=== PATIENT | male | born 1950 | race Caucasian/White ===

== ENCOUNTER 2017-11-21 17:19 | Emergency (ER) | payer BC ==
[2017-11-21 17:42] VITALS: BP 147/74
--- NOTE | 2017-11-21 18:22 | UC ---
Skin Complaint HPI - HPI Summary HPI Summary: 67 y/o male presents to the urgent care c/o bee sting to right upper arm while gardening yesterday. He noticed this morning more itching, erythema, and swelling. Put cortisone cream on this morning without relief. Shamika is 0/10 but area is warm to touch and swollen. Pt denies fever, SOB, chest pain, abdominal pain, N/V/D. - History of Current Complaint Chief Complaint: UCSkin Time Seen by Provider: 11/21/17 18:16 Stated Complaint: BEE STING RT ARM - SWELLING Hx Obtained From: Patient Onset/Duration: Gradual Onset, Lasting Days - 1 day, Still Present, Worse Since - today Skin Exposure Onset/Duration: Days Ago - 1 day Timing: Constant Onset Severity: Mild Current Severity: Mild Pain Intensity: 1 Pain Scale Used: 0-10 Numeric Location: Discrete - RT upper arm Character: Swelling, Pruritus, Raised Aggravating Factor(s): Touch Alleviating Factor(s): Antihistamines Associated Signs & Symptoms: Positive: Rash, Drainage. Negative: Fever, Chills , Throat Tightening Related History: Possible Reaction to: Insect - Allergy/Home Medications Allergies/Adverse Reactions: Allergies Allergy/AdvReac Type Severity Reaction Status Date / Time Sulfa (Sulfonamide Allergy Unknown Verified 11/21/17 17:37 Antibiotics) Reaction Details Home Medications: Home Medications Ascorbic Acid TAB* [Vitamin C TAB*] 500 mg PO DAILY 11/21/17 [History Confirmed 11/21/17] Aspirin [Aspirin Childrens 81 MG] 81 mg PO DAILY 11/21/17 [History Confirmed 07/10] Esomeprazole Magnesium [Nexium 24Hr] 20 mg PO DAILY 11/21/17 [History Confirmed 11/21/17] amLODIPine TAB* [Norvasc 5 mg TAB*] 5 mg PO DAILY 11/21/17 [History Confirmed ] Review of Systems Constitutional: Negative Skin: Rash - Rt upper arm redness and swelling s/p bee sting Eyes: Negative ENT: Negative Respiratory: Negative Cardiovascular: Negative Gastrointestinal: Negative Genitourinary: Negative Motor: Negative Neurovascular: Negative Musculoskeletal: Negative Neurological: Negative Psychological: Negative Is Patient Immunocompromised?: No All Other Systems Reviewed And Are Negative: Yes PMH/Surg Hx/FS Hx/Imm Hx Previously Healthy: Yes Cardiovascular History: Hypertension, Pacemaker/ICD GI/ History: Gastroesophageal Reflux - Surgical History Surgical History: Yes Surgery Procedure, Year, and Place: pacer and (3)aortic valve replacement. carpal tunnel - Family History Known Family History: Positive: Cardiac Disease, Hypertension - Social History Occupation: Retired Lives: With Family Alcohol Use: Daily Alcohol Amount: 1-2 drinks Substance Use Type: None Smoking Status (MU): Never Smoked Tobacco Physical Exam - Summary Physical Exam Summary: Vital Signs Reviewed: Yes General: well developed, well nourished male sitting in the examining table w/o any apparent distress. Eyes: Positive: Conjunctiva Clear - PERRLA, EOMI ENT: Positive: Normal ENT inspection, Hearing grossly normal, Pharynx normal, TMs normal Neck: Positive: Supple, Nontender, No Lymphadenopathy Respiratory: Positive: Chest nontender, Lungs clear, Normal breath sounds Cardiovascular: Positive: RRR, No Murmur, Pulses Normal Abdomen Description: Positive: Nontender, No Organomegaly, Soft. Negative: CVA Tenderness (R), CVA Tenderness (L) Bowel Sounds: Positive: Present Musculoskeletal: Positive: Strength Intact, ROM Intact, No Edema Neurological Exam: Normal Psychological Exam: Normal Skin: Positive: rashes - RT ventral side of Rt upper arm w/ erythematous patch w/ indistinct borders, warm to touch, moderated swelling and tender to palpation. about 2.0cm x 3.0 cm in size. FROM or arm and RT elbow. area demarcated w/ a skin marker. Capillary refill brisk. pulses WNL, sensation intact. Triage Information Reviewed: Yes Vital Signs: Initial Vital Signs Temp 98.4 F 11/21/17 17:33 Pulse 58 11/21/17 17:33 Resp 17 11/21/17 17:33 BP 147/74 11/21/17 17:33 Pulse Ox 98 11/21/17 17:33 Course/Dx - Course Course Of Treatment: 67 y/o male presents to the urgent care c/o bee sting to right upper arm gardening yesterday. He noticed this morning more itching, erythema, and swelling. Put cortisone cream on this morning without relief. Shamika is 0/10 but area is warm to touch and swollen. Pt denies fever, SOB, chest pain, abdominal pain, N/V/D.Hx obtained. Pt w/ RT upper arm w/ ceelulitis s/p bee sting on examination.Pt Rx Keflex PO, Benadryl PO, Prednisone PO and topical Bacitracin. Rash demarcated with a skin marker and Advised if rash doubles in size and if she develops fever to go to the ER for further treatment. Pt BP today elevated w/o Hx of HTN. Pt advised to decrease salt in diet and monitor BP at home if it continues to be elevated to f/u with PCP for further management. Pt understood and agreed. - Differential Diagnoses - Skin Complaint Differential Diagnoses: Abscess, Cellulitis, Contact Dermatitis, MRSA, Urticaria , Other - sting bee - Diagnoses Provider Diagnoses: 1- RT arm cellulitis s/p bee sting. 2- Uncontrolled HTN Discharge - Sign-Out/Discharge Documenting (check all that apply): Discharge/Admit/Transfer - D/C home - Discharge Plan Condition: Stable Disposition: HOME Prescriptions: Cephalexin CAP* [Keflex CAP*] 500 mg PO QID #28 cap diPHENhydraMINE PO* [Benadryl PO 25 MG TAB*] 25 mg PO TID PRN #15 tab PRN Reason: pruritus predniSONE TAB* [Deltasone 20 MG TAB*] 20 mg PO DAILY #11 tab Patient Education Materials: Cellulitis (ED), Low-Sodium Diet (ED) Referrals: Kurtis Page MD [Primary Care Provider] - 3 Days Additional Instructions: 1-Please take full course of Antibiotic. Take Prednisone PO taper dose to alleviate symptoms 2- If redness and swelling doubles in size beyond what was demarcated after 48 hrs of taking antibiotic and fever develops please go to the ER immediately. 3-Avoid too much flexion w/ your Rt arm 4- Take Benadryl PO as directed bayron alleviate itchiness 5-Please F/u with your PCP in 3 days if not improvement of symptoms for further evaluation and treatment. 6-Your BP is elevated today. please decrease salt in your diet, monitor BP and if it continues to be elevated please f/u with your PCP for further management - Billing Disposition and Condition Condition: STABLE Disposition: Home
== END 2017-11-21 18:45 | disposition home or self-care (01) ==
LOC: UCCORT 17:19
DX: L03.113 Cellulitis of right upper limb (principal); T63.441A Toxic effect of venom of bees, accidental (unintentional), initial encounter; Y92.9 Unspecified place or not applicable; Z88.8 Allergy status to other drugs, medicaments and biological substances
CPT/HCPCS: 99212; G0463

== ENCOUNTER 2018-09-02 09:18 | Day surgery (SDC) | payer BC ==
[~2018-09-02 09:18] MED LIST: Acetaminophen TAB* 325 MG PO PRN; Buffered Lidocaine 1% SYRIN* 1 ML/SYRINGE INTRADERM ONE
[2018-09-02] MEDS ORDERED: Midazolam* 1 MG/ML 2 ML VIAL (2 MG) ONE ×2 (10:55→11:22)
[2018-09-02 11:59] VITALS: BP 136/66
[2018-09-02] MEDS ORDERED: Proparacaine 0.5% OPHTH.SOL* 15 ML BTL ONE (12:18)
[2018-09-02] MEDS ORDERED: Cyclopentolate 1% OPTH.SOL* 2 ML BTL ONE (12:18)
[2018-09-02] MEDS ORDERED: Lidocaine 1%* 5 ML VIAL ONE (12:18)
[2018-09-02] MEDS ORDERED: Phenylephrine 2.5% OPTH.SOL* 2 ML BTL ONE (12:18)
[2018-09-02] MEDS ORDERED: acetaZOLAMIDE TAB* 250 MG ONE (12:18)
[2018-09-02] MEDS ORDERED: Povidone Iodine 5% OPTH* 30 ML BTL ONE (12:18)
[2018-09-02] MEDS ORDERED: Lidocaine 2% EPI 1:200000 MPF*10-20 ML VIAL ONE (12:18)
[2018-09-02] MEDS ORDERED: Neomycin/Polymy/Dex OPTH.SUSP* MAXITROL 0.1% 5 ML ONE (12:18)
[2018-09-02] MEDS ORDERED: Ketorolac 0.5% OPHTH (NF) 0.5 % 5 ML BTL ONE (12:18)
--- NOTE | 2018-09-02 13:21 | OP ---
OPERATIVE NOTE: DATE OF OPERATION: 09/02/18 DATE OF : 46 SURGEON: Alvino Duvall M.D. PREOPERATIVE DIAGNOSIS: Cataract, right eye. POSTOPERATIVE DIAGNOSIS: Cataract, right eye. OPERATIVE PROCEDURE: Extracapsular cataract extraction with intraocular lens implant right eye. PROCEDURE: The patient was brought to the operating room after being given 1/2% Alcaine with epineph rine drops in the preoperative area. The eye was prepped and draped in the usual sterile fashion. S terile drape and eyelid speculum were placed. Again, topical 1/2% Alcaine with epinephrine was given . A paracentesis incision was made at the 9 o'clock position with the No.75 blade. Clear cornea inc ision 2.2 x 2.2-mm was created at the 12 o'clock position starting at the anterior limbus using the 2 .2-mm keratome. The anterior chamber was irrigated with 0.4 mL of 1% non-preservative intracameral l idocaine and filled with DisCoVisc. A capsulorrhexis was completed using the cystotome and the Utrat a forceps. Hydrodissection was performed with balanced salt solution. The lens nucleus was removed w ith the Phacoemulsification handpiece without incident. Cortex was removed with the irrigation-aspir ation handpiece. The capsular bag was re-inflated using DisCoVisc and an implant was inserted with the shooter, oriented to the 5 degree meridian. Horizontal reference hutchins made with the patie nt in the preoperative area in a seated position. All measurements were confirmed with ORA. The irri gation-aspiration handpiece was used to remove all residual DisCoVisc. The eye was refilled with bal anced salt solution and the wound checked and found to be watertight. Topical Maxitrol drops were gi timothy. [id number]/[facility] #: [id number]
== END 2018-09-02 12:14 | disposition home or self-care (01) ==
LOC: OREAST 09:18
PROVIDERS: ATTEND Specialist
DX: H25.811 Combined forms of age-related cataract, right eye (principal); H43.813 Vitreous degeneration, bilateral; Z95.2 Presence of prosthetic heart valve; Z79.01 Long term (current) use of anticoagulants; I10 Essential (primary) hypertension; Z87.891 Personal history of nicotine dependence; K21.9 Gastro-esophageal reflux disease without esophagitis
CPT/HCPCS: A9270-GY; J2250

== ENCOUNTER 2018-09-09 07:00 | Day surgery (SDC) | payer BC ==
[2018-09-09] MEDS ORDERED: fentaNYL* 50 MCG/ML 2 ML VIAL (100 MCG VIAL) ONE (08:39)
[2018-09-09] MEDS ORDERED: Midazolam* 1 MG/ML 2 ML VIAL (2 MG) ONE ×2 (08:39→09:10)
[2018-09-09] MEDS ORDERED: Ketorolac 0.5% OPHTH (NF) 0.5 % 5 ML BTL ONE (09:28)
[2018-09-09] MEDS ORDERED: Phenylephrine OPHTH SOL 2.5%* 2 ML ONE (09:28)
[2018-09-09] MEDS ORDERED: Proparacaine 0.5% OPHTH.SOL* 15 ML BTL ONE (09:28)
[2018-09-09] MEDS ORDERED: Cyclopentolate 1% OPTH.SOL* 2 ML BTL ONE (09:28)
[2018-09-09] MEDS ORDERED: Lidocaine 2% EPI 1:200000 MPF*10-20 ML VIAL ONE (09:28)
[2018-09-09] MEDS ORDERED: Povidone Iodine 5% OPTH* 30 ML BTL ONE (09:28)
[2018-09-09] MEDS ORDERED: Lidocaine 1%* 5 ML VIAL ONE (09:28)
[2018-09-09] MEDS ORDERED: Neomycin/Polymy/Dex OPTH.SUSP* MAXITROL 0.1% 5 ML ONE (09:28)
[2018-09-09 09:57] VITALS: BP 138/58
--- NOTE | 2018-09-09 10:41 | OP ---
OPERATIVE NOTE: DATE OF OPERATION: 09/09/18 DATE OF : 46 SURGEON: Alvino Duvall MD PREOPERATIVE DIAGNOSIS: Cataract, left eye. POSTOPERATIVE DIAGNOSIS: Cataract, left eye. OPERATIVE PROCEDURE: Extracapsular cataract extraction with intraocular lens implant, left eye. DESCRIPTION OF PROCEDURE: The patient was brought to the operating room after being given 1/2% Alcai ne with epinephrine drops in the preoperative area. The eye was prepped and draped in the usual ster ile fashion. Sterile drape and eyelid speculum were placed. Again, topical 1/2% Alcaine with epinep hrine was given. A paracentesis incision was made at the 3 o'clock position with the No.75 blade. Cl ear cornea incision 2.2 x 2.2-mm was created at the 6 o'clock position starting at the anterior limbu s using the 2.2-mm keratome. The anterior chamber was irrigated with 0.4 mL of 1% non-preservative i ntracameral lidocaine and filled with DisCoVisc. A capsulorrhexis was completed using the cystotome and the Utrata forceps. Hydrodissection was performed with balanced salt solution. The lens nucleus was removed with the Phacoemulsification handpiece without incident. Cortex was removed with the irr igation-aspiration handpiece. The capsular bag was re-inflated using DisCoVisc and an [id number] was inserted with the shooter and oriented to the 178-degree meridian. The horizontal reference hutchins were made with the patient in a seated position in the preoperative area. All measurements wer e confirmed using ORA. The irrigation-aspiration handpiece was used to remove all residual DisCoVisc . The eye was refilled with balanced salt solution and the wound checked and found to be watertight. Topical Maxitrol drops were given. [id number]/[facility] #: [id number]
== END 2018-09-09 09:58 | disposition home or self-care (01) ==
LOC: OREAST 07:00
PROVIDERS: ATTEND Specialist
DX: H25.812 Combined forms of age-related cataract, left eye (principal); H43.813 Vitreous degeneration, bilateral; I10 Essential (primary) hypertension; Z95.2 Presence of prosthetic heart valve; Z79.01 Long term (current) use of anticoagulants; Z87.891 Personal history of nicotine dependence; I48.91 Unspecified atrial fibrillation
CPT/HCPCS: A9270-GY; J2250; J3010; V2788

== ENCOUNTER 2018-11-20 18:26 | Emergency (ER) | payer BC ==
[2018-11-20 19:31] VITALS: BP 126/70
--- NOTE | 2018-11-20 19:54 | UC ---
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 -no fevers/chills. no arthralgias or chills. would liek 1x dose - History of Current Complaint Chief Complaint: UCSkin Time Seen by Provider: 11/20/18 19:35 Stated Complaint: TICK BITE Pain Intensity: 0 - Allergy/Home Medications Allergies/Adverse Reactions: Allergies Allergy/AdvReac Type Severity Reaction Status Date / Time Sulfa (Sulfonamide Allergy Unknown Verified 11/20/18 19:32 Antibiotics) Reaction Details PMH/Surg Hx/FS Hx/Imm Hx Previously Healthy: Yes - Surgical History Surgical History: Yes Surgery Procedure, Year, and Place: Pacemaker 2008. (3) Aortic valve replacement- 2000, 2008, 2013 [facility]. Carpal Tunnel-right x 2, left x1 [facility]. Ulnar nerve reposition - Right twice, left once [place] and [facility] [place]. Appendectomy 1966. bilat cataract 08/2018 - Family History Known Family History: Positive: Cardiac Disease, Hypertension - Social History Alcohol Use: Daily Alcohol Amount: 1-2 drinks wine or beer Substance Use Type: None Smoking Status (MU): Former Smoker Amount Used/How Often: 1 year in high school- 1 pack per week Review of Systems All Other Systems Reviewed And Are Negative: Yes Constitutional: Positive: Negative Skin: Positive: Negative Eyes: Positive: Negative Respiratory: Positive: Negative Cardiovascular: Positive: Negative Gastrointestinal: Positive: Negative Motor: Positive: Negative Neurovascular: Positive: Negative Musculoskeletal: Positive: Negative Neurological: Positive: Negative Psychological: Positive: Negative Is Patient Immunocompromised?: No Physical Exam Triage Information Reviewed: Yes Appearance: Well-Appearing, No Pain Distress, Well-Nourished - very pleasant Vital Signs: Initial Vital Signs Temp 97.4 F 11/20/18 19:28 Pulse 50 11/20/18 19:28 Resp 16 11/20/18 19:28 BP 126/70 11/20/18 19:28 Pulse Ox 100 11/20/18 19:28 Respiratory Exam: Normal Cardiovascular Exam: Normal Cardiovascular: Positive: Murmur:Sys:Grade _?_/ Musculoskeletal Exam: Normal Neurological Exam: Normal Psychological Exam: Normal Skin: Positive: Other - right [osterior upper arm w/ small tic embedded. not engorged. easily removed w/ small tic twister. mild surrounding erythema. no bull's eye rash. cool. no dc. Course/Dx - Differential Diagnoses - Skin Complaint Differential Diagnoses: Other - tic - Diagnoses Provider Diagnosis: Tic Discharge - Sign-Out/Discharge Documenting (check all that apply): Patient Departure All imaging exams completed and their final reports reviewed: No Studies - Discharge Plan Condition: Stable Disposition: HOME Prescriptions: Doxycycline Monohydrate 200 mg PO ONCE 1 Days #2 cap Patient Education Materials: Tick Bite (ED) Referrals: Kurtis Page MD [Primary Care Provider] - If Needed Additional Instructions: We are giving you a one time dose of doxycyline for prophylaxis. You should see your PCP with any fevers, chills, joint aches or a bull's eye rash in that area. - Billing Disposition and Condition Condition: STABLE Disposition: Home
== END 2018-11-20 20:02 | disposition home or self-care (01) ==
LOC: UCCORT 18:26
DX: S40.861A Insect bite (nonvenomous) of right upper arm, initial encounter (principal); W57.XXXA Bitten or stung by nonvenomous insect and other nonvenomous arthropods, initial encounter; Z87.891 Personal history of nicotine dependence; Z95.0 Presence of cardiac pacemaker; Z95.2 Presence of prosthetic heart valve
CPT/HCPCS: 99212; G0463

== ENCOUNTER 2018-12-11 18:56 | Emergency (ER) | payer BC ==
[2018-12-11 19:30] VITALS: BP 135/80
--- NOTE | 2018-12-11 20:05 | UC ---
Skin Complaint HPI - HPI Summary HPI Summary: 68 yo male with tick on left arm x 8 hours or less both he and his have been unable to remove it - History of Current Complaint Chief Complaint: UCSkin Time Seen by Provider: 12/11/18 19:29 Stated Complaint: TICK BITE Hx Obtained From: Patient Onset/Duration: Sudden Onset Skin Exposure Onset/Duration: Hours Ago Timing: Constant Current Severity: None Pain Intensity: 0 Location: Other - left arm Aggravating Factor(s): Nothing Alleviating Factor(s): Nothing Associated Signs & Symptoms: Positive: Negative Related History: Insect Bite/Sting - Allergy/Home Medications Allergies/Adverse Reactions: Allergies Allergy/AdvReac Type Severity Reaction Status Date / Time Sulfa (Sulfonamide Allergy Unknown Verified 11/20/18 19:32 Antibiotics) Reaction Details PMH/Surg Hx/FS Hx/Imm Hx Previously Healthy: Yes Cardiovascular History: Other - valve replacement - Surgical History Surgical History: Yes Surgery Procedure, Year, and Place: Pacemaker 2008. (3) Aortic valve replacements 2000, 2008, 2013 [facility]. Carpal Tunnel-right x 2, left x1 [facility]. Ulnar nerve reposition - Right twice, left once [place] and [facility] [place]. Appendectomy 1966. bilat cataract 08/2018 - Family History Known Family History: Positive: Cardiac Disease, Hypertension - Social History Alcohol Use: Daily Alcohol Amount: 1-2 drinks wine or beer Substance Use Type: None Smoking Status (MU): Former Smoker Amount Used/How Often: 1 year in high school- 1 pack per week Review of Systems All Other Systems Reviewed And Are Negative: Yes Constitutional: Positive: Negative Skin: Positive: Negative Eyes: Positive: Negative ENT: Positive: Negative Respiratory: Positive: Negative Cardiovascular: Positive: Negative Gastrointestinal: Positive: Negative Genitourinary: Positive: Negative Motor: Positive: Negative Neurovascular: Positive: Negative Musculoskeletal: Positive: Negative Neurological: Positive: Negative Psychological: Positive: Negative Physical Exam Triage Information Reviewed: Yes Appearance: Well-Appearing, No Pain Distress, Well-Nourished Vital Signs: Initial Vital Signs Temp 98.1 F 12/11/18 19:25 Pulse 56 12/11/18 19:25 Resp 20 12/11/18 19:25 BP 135/80 12/11/18 19:25 Pulse Ox 98 12/11/18 19:25 Vital Signs Reviewed: Yes Eyes: Positive: Conjunctiva Clear ENT: Positive: Hearing grossly normal. Negative: Nasal congestion, Nasal drainage, Trismus, Muffled voice, Hoarse voice Neck: Positive: Supple Respiratory: Positive: Lungs clear, Normal breath sounds, No respiratory distress, No accessory muscle use Cardiovascular: Positive: RRR Musculoskeletal: Positive: No Edema Neurological: Positive: Alert Psychological Exam: Normal Skin Exam: Other - tick left arm Course/Dx - Course Course Of Treatment: removed with tick twister - Diagnoses Provider Diagnosis: Tick bite of left upper arm Discharge - Sign-Out/Discharge Documenting (check all that apply): Patient Departure All imaging exams completed and their final reports reviewed: No Studies - Discharge Plan Condition: Stable Disposition: HOME Patient Education Materials: Tick Bite (ED) Referrals: Kurtis Page MD [Primary Care Provider] - If Needed - Billing Disposition and Condition Condition: STABLE Disposition: Home
== END 2018-12-11 20:06 | disposition home or self-care (01) ==
LOC: UCCORT 18:56
DX: T63.481A Toxic effect of venom of other arthropod, accidental (unintentional), initial encounter (principal); Y92.9 Unspecified place or not applicable; Z88.2 Allergy status to sulfonamides; Z87.891 Personal history of nicotine dependence; Z95.2 Presence of prosthetic heart valve; Z95.0 Presence of cardiac pacemaker
CPT/HCPCS: 99211; G0463

== ENCOUNTER 2022-08-14 08:30 | Inpatient (IN) ==
[2022-08-14 11:01] LABS: Calcium 10.3 mg/dL (8.6-10.3); Creatinine, Serum 0.68 mg/dL (0.67-1.17); Magnesium 1.9 mg/dL (1.9-2.7); Potassium 4.7 mmol/L (3.5-5.0); eGFR CKD-EPI 98.1 (>60)
[2022-08-14 11:32] LABS: INR 2.71 (0.88-1.18)
[2022-08-15 07:41] LABS: Calcium 9.6 mg/dL (8.6-10.3); Creatinine, Serum 0.64 mg/dL (0.67-1.17); Potassium 4.1 mmol/L (3.5-5.0)
[2022-08-15] MEDS: Aspirin EC 81 mg TAB.EC (enteric coated) PO SCH (09:15)
[2022-08-15 11:08] LABS: Magnesium 1.9 mg/dL (1.9-2.7)
[2022-08-16 06:35] LABS: Calcium 9.7 mg/dL (8.6-10.3); Creatinine, Serum 0.7 mg/dL (0.67-1.17); Potassium 4.3 mmol/L (3.5-5.0); eGFR CKD-EPI 96.7 (>60)
[2022-08-16] MEDS ORDERED: NS 0.9% 1000 ml BAG 1,000 ML IV ONE (07:00)
[2022-08-16 09:25] LABS: Magnesium 1.9 mg/dL (1.9-2.7)
[2022-08-16] MEDS: Aspirin EC 81 mg TAB.EC (enteric coated) PO SCH (09:46)
[2022-08-16] MEDS ORDERED: Flumazenil 0.5 mg/5 ml 0.1 MG/ML 5 ml VIAL ONE (15:07)
[2022-08-16] MEDS ORDERED: Midazolam 5 mg/5 ml VIAL 1 mg/ml 5 ml VIAL (5 mg) ONE (15:07)
[2022-08-16] MEDS ORDERED: fentaNYL 100 mcg/2 ml 50 MCG/ML VIAL ONE (15:07)
[2022-08-16] MEDS ORDERED: Naloxone 0.4 mg VIAL 0.4 mg/ml 1 ml VIAL ONE (15:07)
[2022-08-16] MEDS ORDERED: Midazolam 10 mg/10 ml VIAL 1 mg/ml 10 ml VIAL (10 mg) IV SLOW PU ONE (15:22)
[2022-08-16] MEDS ORDERED: fentaNYL 100 mcg/2 ml 50 MCG/ML VIAL IV SLOW PU ONE (15:22)
[2022-08-16 19:56] VITALS: BP 125/62
== END 2022-08-16 19:50 | disposition home or self-care (01) | DRG 310 ==
LOC: MEDTELE 08:30
PROVIDERS: ADMIT Specialist; ATTEND Specialist
PROC: CARDVER (ICD-10-PCS; 2022-08-16 15:20)

== ENCOUNTER 2023-05-06 09:26 | Inpatient (IN) ==
[2023-05-06 14:40] LABS: Hematocrit 39.9 % (38-53); Hemoglobin 13.5 g/dL (13.2-16.3); Mean Corpuscular Hemoglobin 31.4 pg (27-33); Mean Corpuscular Hgb Conc 33.8 g/dL (31-36); Mean Corpuscular Volume 92.8 fL (80-97); Mean Platelet Volume 11.8 fL (7.5-11.2); Platelet Count 45 10^3/uL (150-450); Red Cell Distribution Width 13.6 % (12-17); White Blood Count 3.6 10^3/uL (3.6-10.2)
[2023-05-06 14:43] LABS: Activated Partial Thrombo Time 40.6 seconds (26.0-38.0); INR 2.12 (0.83-1.13)
[2023-05-06 14:48] LABS: Urine Appearance Clear; Urine Bilirubin Negative (Negative); Urine Blood Negative (Negative); Urine Color Amber; Urine Glucose Negative (Negative); Urine Ketones Negative (Negative); Urine Nitrite Negative (Negative); Urine Protein 2+(100 mg/dL) (Negative); Urine Specific Gravity 1.025 (1.002-1.030); Urine Urobilinogen Positive (Negative)
[2023-05-06 14:49] LABS: Albumin 3.9 g/dL (3.2-5.2); Albumin/Globulin Ratio 1.6 (1-3); C Reactive Protein 95.53 mg/L (<8.01); Calcium 9.4 mg/dL (8.6-10.3); Creatinine, Serum 0.83 mg/dL (0.67-1.17); Globulin 2.5 g/dL (2-4); Potassium 4.1 mmol/L (3.5-5.0); Total Bilirubin 1.1 mg/dL (0.2-1.0); Total Protein 6.4 g/dL (6.4-8.9); eGFR CKD-EPI 91.8 (>60)
[2023-05-06 14:54] LABS: Urine Bacteria Absent (Absent); Urine Red Blood Cell Trace(0-2/hpf) (Absent); Urine White Blood Cell Trace(0-5/hpf) (Absent)
[2023-05-06 15:20] LABS: ABS Lymphocytes 0.2 10^3/uL (1.0-4.8); ABS Neutrophils 3.4 10^3/uL (1.5-7.6); Lymphocyte % 5.1 %; Nucleated Red Blood Cells % 0.1 %/100WBC (0.0-0.8)
[2023-05-06 16:45] LABS: High Sensitivity Troponin 1 Hr 77 pg/mL (<20)
[2023-05-06] MEDS ORDERED: Iodixanol (CONTRAST) 320 MG/ML 100 ML SDV IV ONE (18:18)
[2023-05-06] MEDS ORDERED: LACTATED RINGERS IV ONE (18:21)
[2023-05-06] MEDS ORDERED: DOXYcycline 100 MG in NS 0.9% 250 ml 250 ML IVPB ONE (18:22)
[2023-05-06] MEDS ORDERED: cefTRIAXone 1 gm/50 mL D5W 1 GM/50 ML BAG IV SCH (18:30)
[2023-05-06] MEDS ORDERED: Heparin DRIP 25,000 UNITS BAG 25,000 UNITS/500 ML BAG IV SCH (19:45)
[2023-05-06] MEDS ORDERED: Enoxaparin 40 MG/0.4 ML SYR SUBCUT SCH (20:00)
[2023-05-06] MEDS ORDERED: Heparin 5000 UNITS/ML 1 mL VIAL IV SCH (20:00)
[2023-05-06 20:18] LABS: Activated Partial Thrombo Time 39.5 seconds (26.0-38.0); INR 2.27 (0.83-1.13)
[2023-05-06 20:34] LABS: Platelet Count 34 10^3/ul (150-450); Schistocytes ABSENT
[2023-05-06 21:38] LABS: Hematocrit 35.3 % (38-53); Hemoglobin 12.3 g/dL (13.2-16.3); Mean Corpuscular Hemoglobin 31.8 pg (27-33); Mean Corpuscular Hgb Conc 34.8 g/dL (31-36); Mean Corpuscular Volume 91.4 fL (80-97); Red Blood Count 3.86 10^6/uL (4.06-5.63); Red Cell Distribution Width 13.5 % (12-17); White Blood Count 2.4 10^3/uL (3.6-10.2)
[2023-05-06 21:53] LABS: Osmolality Serum 266 mOsm/kg (275-295)
[2023-05-06 22:21] LABS: Mean Platelet Volume 11.6 fL (7.5-11.2); Platelet Count 33 10^3/uL (150-450)
[2023-05-06] MEDS ORDERED: Dextrose 50% Syringe 50 ml 25 GM/50 ML SYRINGE IV PUSH PRN (22:28)
[2023-05-06] MEDS ORDERED: Piperacillin/Tazobac 3.375 BAG 3.375 GM/100 ML BAG IV ONE (22:40)
[2023-05-06] MEDS ORDERED: Zosyn per Pharmacy NOTE FOLLOW UP SCH (23:00)
[2023-05-06 23:33] LABS: Hepatitis B Surface Antigen Nonreactive (Nonreactive)
[2023-05-06 23:38] LABS: Hepatitis A Ab IgM Negative (Negative)
[2023-05-06 23:39] LABS: Hepatitis B Core IgM Nonreactive (Nonreactive)
[2023-05-06 23:50] LABS: Hepatitis C Antibody Negative (Negative)
[2023-05-07 03:52] LABS: ABS Lymphocytes 0.3 10^3/uL (1.0-4.8); ABS Monocytes 0.1 10^3/uL (0.0-1.1); ABS Neutrophils 2.2 10^3/uL (1.5-7.6); Hematocrit 36.1 % (38-53); Hemoglobin 12.3 g/dL (13.2-16.3); Lymphocyte % 11.4 %; Mean Corpuscular Hemoglobin 31.2 pg (27-33); Mean Corpuscular Hgb Conc 34.1 g/dL (31-36); Mean Corpuscular Volume 91.6 fL (80-97); Mean Platelet Volume 12.2 fL (7.5-11.2); Nucleated Red Blood Cells % 0.1 %/100WBC (0.0-0.8); Platelet Count 29 10^3/uL (150-450); Red Blood Count 3.94 10^6/uL (4.06-5.63); Red Cell Distribution Width 13.3 % (12-17); White Blood Count 2.6 10^3/uL (3.6-10.2)
[2023-05-07 04:05] LABS: Albumin 3.3 g/dL (3.2-5.2); Albumin/Globulin Ratio 1.6 (1-3); Calcium 8.5 mg/dL (8.6-10.3); Creatinine, Serum 0.66 mg/dL (0.67-1.17); Globulin 2.1 g/dL (2-4); Magnesium 1.7 mg/dL (1.9-2.7); Potassium 3.8 mmol/L (3.5-5.0); Total Bilirubin 0.8 mg/dL (0.2-1.0); Total Protein 5.4 g/dL (6.4-8.9); eGFR CKD-EPI 98.4 (>60)
[2023-05-07] MEDS: ZOSYN 3.375 GM Q8H per EXTENDED INFUSION IV SCH ×2 (05:58→12:14)
[2023-05-07] MEDS ORDERED: DOXYcycline 100 MG in NS 0.9% 250 ml 250 ML IVPB SCH (06:00)
[2023-05-07] MEDS: DOXYcycline 100 MG in NS 0.9% 250 ml 250 ML IVPB SCH (12:15)
[2023-05-07 20:36] LABS: Hematocrit 36.6 % (38-53); Hemoglobin 12.4 g/dL (13.2-16.3); Mean Corpuscular Hemoglobin 31.3 pg (27-33); Mean Corpuscular Hgb Conc 33.8 g/dL (31-36); Mean Corpuscular Volume 92.6 fL (80-97); Mean Platelet Volume 12.5 fL (7.5-11.2); Platelet Count 27 10^3/uL (150-450); Red Blood Count 3.95 10^6/uL (4.06-5.63); Red Cell Distribution Width 13.1 % (12-17); White Blood Count 2.8 10^3/uL (3.6-10.2)
[2023-05-07 20:54] LABS: ABS Lymphocytes 0.8 10^3/uL (1.0-4.8); ABS Monocytes 0.3 10^3/uL (0.0-1.1); ABS Neutrophils 1.8 10^3/uL (1.5-7.6); ABS Nucleated RBC 0.01 10^3/ul; Eosinophil % 0.4 %; Lymphocyte % 27.3 %; Nucleated Red Blood Cells % 0.4 %/100WBC (0.0-0.8)
[2023-05-08] MEDS: DOXYcycline 100 MG in NS 0.9% 250 ml 250 ML IVPB SCH ×3 (00:08→22:00)
[2023-05-08 01:19] LABS: Giant Platelets Present; Large Platelets Present; Mean Platelet Volume 11.9 fL (7.5-11.2); Platelet Count 28 10^3/uL (150-450)
[2023-05-08] MEDS ORDERED: Lidocaine 2% PF 5 ML VIAL INJ ONE (08:28)
[2023-05-08 08:50] LABS: ABS Lymphocytes 0.9 10^3/uL (1.0-4.8); ABS Monocytes 0.5 10^3/uL (0.0-1.1); ABS Neutrophils 2.3 10^3/uL (1.5-7.6); ABS Nucleated RBC 0.01 10^3/ul; Eosinophil % 0.2 %; Hematocrit 37.4 % (38-53); Hemoglobin 12.7 g/dL (13.2-16.3); Lymphocyte % 25.1 %; Mean Corpuscular Hemoglobin 30.9 pg (27-33); Mean Corpuscular Hgb Conc 33.9 g/dL (31-36); Nucleated Red Blood Cells % 0.3 %/100WBC (0.0-0.8); Red Blood Count 4.11 10^6/uL (4.06-5.63); Red Cell Distribution Width 13.2 % (12-17); White Blood Count 3.7 10^3/uL (3.6-10.2)
[2023-05-08 08:56] LABS: Calcium 8.5 mg/dL (8.6-10.3); Creatinine, Serum 0.65 mg/dL (0.67-1.17); Magnesium 1.7 mg/dL (1.9-2.7); Potassium 3.9 mmol/L (3.5-5.0); eGFR CKD-EPI 98.9 (>60)
[2023-05-08] MEDS ORDERED: Lidocaine 2% PF 5 ML VIAL ONE (09:17)
[2023-05-08 09:26] LABS: Mean Platelet Volume 13.2 fL (7.5-11.2); Platelet Count 28 10^3/uL (150-450)
[2023-05-08] MEDS ORDERED: Magnesium Sulfate 2 gm BAG 2 GM/50 ML BAG IVPB ONE (09:43)
[2023-05-08 19:55] LABS: ABS Lymphocytes 1.6 10^3/uL (1.0-4.8); ABS Monocytes 0.6 10^3/uL (0.0-1.1); ABS Neutrophils 4.1 10^3/uL (1.5-7.6); ABS Nucleated RBC 0.02 10^3/ul; Eosinophil % 0.3 %; Hematocrit 39.8 % (38-53); Hemoglobin 13.5 g/dL (13.2-16.3); Lymphocyte % 25.1 %; Mean Corpuscular Hgb Conc 33.9 g/dL (31-36); Mean Corpuscular Volume 91.3 fL (80-97); Mean Platelet Volume 10.8 fL (7.5-11.2); Nucleated Red Blood Cells % 0.3 %/100WBC (0.0-0.8); Platelet Count 33 10^3/uL (150-450); Red Blood Count 4.36 10^6/uL (4.06-5.63); Red Cell Distribution Width 13.3 % (12-17); White Blood Count 6.4 10^3/uL (3.6-10.2)
[2023-05-09 00:48] LABS: Anaplasma phagocytophilum Positive (Negative); B. miyamotoi PCR, B Negative (Negative); Babesia divergens/MO-1 Negative (Negative); Babesia ducani Negative (Negative); Ehrlichia chaffeensis Negative (Negative); Ehrlichia ewingii/canis Negative (Negative); Ehrlichia muris eauclairensis Negative (Negative)
[2023-05-09 06:59] LABS: Calcium 8.3 mg/dL (8.6-10.3); Creatinine, Serum 0.69 mg/dL (0.67-1.17); Potassium 3.9 mmol/L (3.5-5.0); eGFR CKD-EPI 97.1 (>60)
[2023-05-09 07:42] LABS: Hematocrit 35.8 % (38-53); Hemoglobin 12.3 g/dL (13.2-16.3); Mean Corpuscular Hemoglobin 31.2 pg (27-33); Mean Corpuscular Hgb Conc 34.3 g/dL (31-36); Mean Corpuscular Volume 91.2 fL (80-97); Red Blood Count 3.92 10^6/uL (4.06-5.63); White Blood Count 5.9 10^3/uL (3.6-10.2)
[2023-05-09 07:43] LABS: ABS Lymphocytes 1.7 10^3/uL (1.0-4.8); ABS Monocytes 0.7 10^3/uL (0.0-1.1); ABS Neutrophils 3.4 10^3/uL (1.5-7.6); ABS Nucleated RBC 0.02 10^3/ul; Eosinophil % 0.5 %; Lymphocyte % 29.4 %; Nucleated Red Blood Cells % 0.3 %/100WBC (0.0-0.8)
[2023-05-09] MEDS: DOXYcycline 100 MG in NS 0.9% 250 ml 250 ML IVPB SCH (09:40)
[2023-05-09 10:45] LABS: Mean Platelet Volume 12.9 fL (7.5-11.2); Platelet Count 29 10^3/uL (150-450)
[2023-05-09 10:53] LABS: Large Platelets Present; RBC Morphology Normal (Normal)
[2023-05-09] MEDS ORDERED: Heparin 5000 UNITS/ML 1 mL VIAL IV SCH (13:00)
[2023-05-09 14:02] LABS: ABS Lymphocytes 1.1 10^3/uL (1.0-4.8); ABS Monocytes 0.3 10^3/uL (0.0-1.1); ABS Neutrophils 4.8 10^3/uL (1.5-7.6); Eosinophil % 0.3 %; Hematocrit 36.6 % (38-53); Hemoglobin 12.5 g/dL (13.2-16.3); Lymphocyte % 17.6 %; Mean Corpuscular Hemoglobin 31.1 pg (27-33); Mean Corpuscular Hgb Conc 34.3 g/dL (31-36); Mean Corpuscular Volume 90.7 fL (80-97); Mean Platelet Volume 12.2 fL (7.5-11.2); Platelet Count 38 10^3/uL (150-450); Red Blood Count 4.03 10^6/uL (4.06-5.63); Red Cell Distribution Width 13.4 % (12-17); White Blood Count 6.2 10^3/uL (3.6-10.2)
[2023-05-09 14:09] LABS: Creatinine, Serum 0.59 mg/dL (0.67-1.17); eGFR CKD-EPI 101.8 (>60)
[2023-05-09] MEDS: Heparin DRIP 25,000 UNITS BAG 25,000 UNITS/500 ML BAG IV SCH (16:05)
[2023-05-10 00:38] LABS: Mean Platelet Volume 12.1 fL (7.5-11.2); Platelet Count 35 10^3/uL (150-450)
[2023-05-10 05:11] LABS: Hematocrit 33.9 % (38-53); Hemoglobin 11.8 g/dL (13.2-16.3); Mean Corpuscular Hemoglobin 31.4 pg (27-33); Mean Corpuscular Hgb Conc 34.8 g/dL (31-36); Mean Corpuscular Volume 90.3 fL (80-97); Red Blood Count 3.76 10^6/uL (4.06-5.63); Red Cell Distribution Width 13.4 % (12-17)
[2023-05-10 05:23] LABS: Calcium 8.8 mg/dL (8.6-10.3); Creatinine, Serum 0.49 mg/dL (0.67-1.17); Potassium 3.8 mmol/L (3.5-5.0); eGFR CKD-EPI 107.7 (>60)
[2023-05-10 05:29] LABS: ABS Lymphocytes 2.4 10^3/uL (1.0-4.8); ABS Monocytes 0.6 10^3/uL (0.0-1.1); ABS Neutrophils 3.9 10^3/uL (1.5-7.6); ABS Nucleated RBC 0.02 10^3/ul; Eosinophil % 0.3 %; Lymphocyte % 33.9 %; Mean Platelet Volume 11.7 fL (7.5-11.2); Nucleated Red Blood Cells % 0.3 %/100WBC (0.0-0.8); Platelet Count 37 10^3/uL (150-450)
[2023-05-10] MEDS: Heparin DRIP 25,000 UNITS BAG 25,000 UNITS/500 ML BAG IV SCH (17:14)
[2023-05-11 00:53] LABS: Mean Platelet Volume 11.3 fL (7.5-11.2); Platelet Count 68 10^3/uL (150-450)
[2023-05-11 06:11] LABS: ABS Basophils 0.1 10^3/uL (0.0-0.1); ABS Eosinophils 0.2 10^3/uL (0.0-0.5); ABS Lymphocytes 3.2 10^3/uL (1.0-4.8); ABS Monocytes 1.2 10^3/uL (0.0-1.1); ABS Neutrophils 5.5 10^3/uL (1.5-7.6); Eosinophil % 1.9 %; Hematocrit 34.9 % (38-53); Hemoglobin 11.8 g/dL (13.2-16.3); Lymphocyte % 31.7 %; Mean Corpuscular Hemoglobin 30.9 pg (27-33); Mean Corpuscular Hgb Conc 33.9 g/dL (31-36); Platelet Count 65 10^3/uL (150-450); Red Blood Count 3.83 10^6/uL (4.06-5.63); Red Cell Distribution Width 13.4 % (12-17); White Blood Count 10.1 10^3/uL (3.6-10.2)
[2023-05-11 06:30] LABS: Calcium 8.5 mg/dL (8.6-10.3); Creatinine, Serum 0.56 mg/dL (0.67-1.17); Potassium 3.4 mmol/L (3.5-5.0); eGFR CKD-EPI 103.4 (>60)
[2023-05-11] MEDS ORDERED: Potassium Chlor 20 meq TAB.ER PO ONE (08:23)
[2023-05-11] MEDS: Heparin DRIP 25,000 UNITS BAG 25,000 UNITS/500 ML BAG IV SCH (20:57)
[2023-05-12 06:31] LABS: Activated Partial Thrombo Time 56.9 seconds (26.0-38.0)
[2023-05-12 06:34] LABS: Calcium 8.9 mg/dL (8.6-10.3); Creatinine, Serum 0.61 mg/dL (0.67-1.17); Potassium 3.9 mmol/L (3.5-5.0); eGFR CKD-EPI 100.8 (>60)
[2023-05-12 07:39] LABS: ABS Basophils 0.1 10^3/uL (0.0-0.1); ABS Eosinophils 0.2 10^3/uL (0.0-0.5); ABS Lymphocytes 3.3 10^3/uL (1.0-4.8); ABS Neutrophils 6.7 10^3/uL (1.5-7.6); ABS Nucleated RBC 0.04 10^3/ul; Eosinophil % 1.7 %; Hematocrit 36.9 % (38-53); Hemoglobin 12.6 g/dL (13.2-16.3); Lymphocyte % 29.3 %; Mean Corpuscular Hgb Conc 34.1 g/dL (31-36); Mean Corpuscular Volume 90.8 fL (80-97); Mean Platelet Volume 11.6 fL (7.5-11.2); Nucleated Red Blood Cells % 0.3 %/100WBC (0.0-0.8); Platelet Count 84 10^3/uL (150-450); Red Blood Count 4.06 10^6/uL (4.06-5.63); Red Cell Distribution Width 13.2 % (12-17); White Blood Count 11.3 10^3/uL (3.6-10.2)
[2023-05-12 07:48] LABS: INR 1.55 (0.83-1.13)
[2023-05-12 08:47] LABS: INR 1.43 (0.83-1.13)
[2023-05-12] MEDS ORDERED: Enoxaparin 100 MG/ML SYR SUBCUT SCH (10:00)
[2023-05-12 10:22] VITALS: BP 157/83
[2023-05-16 11:48] LABS: MDS (FISH) Result Summary Normal
[2023-05-20 12:38] LABS: BM Result Summary Normal
== END 2023-05-12 13:40 | disposition home or self-care (01) | DRG 867 ==
LOC: ED 09:26 → SUATTDRO 18:27 → EDHOLD 18:27 → MED 21:14
PROVIDERS: ADMIT Hospitalist; ATTEND Student in an Organized Health Care Education/Training Program

== ENCOUNTER 2024-04-06 09:30 | Inpatient (IN) ==
[2024-04-06 10:04] LABS: Hematocrit 46.4 % (38-53); Hemoglobin 15.3 g/dL (13.2-16.3); Mean Corpuscular Hemoglobin 30.8 pg (27-33); Mean Corpuscular Hgb Conc 32.9 g/dL (31-36); Mean Corpuscular Volume 93.5 fL (80-97); Red Blood Count 4.96 10^6/uL (4.06-5.63); Red Cell Distribution Width 12.9 % (12-17); White Blood Count 15.1 10^3/uL (3.6-10.2)
[2024-04-06 10:08] LABS: INR 3.31 (0.85-1.14)
[2024-04-06 10:27] LABS: ABS Monocytes 1.5 10^3/uL (0.0-1.1); ABS Neutrophils 12.6 10^3/uL (1.5-7.6); ABS Nucleated RBC 0.01 10^3/ul; Eosinophil % 0.1 %; Large Platelets Present; Lymphocyte % 6.3 %; Mean Platelet Volume 10.9 fL (7.5-11.2); Nucleated Red Blood Cells % 0.1 %/100WBC (0.0-0.8); Platelet Count 93 10^3/uL (150-450)
[2024-04-06] MEDS: Ondansetron 4 mg VIAL 2 MG/ML 2 ml VIAL IV ONE (10:27)
[2024-04-06] MEDS: Morphine 4 MG/ML VIAL (1 ml) IV ONE ×3 (10:27→15:39)
[2024-04-06 10:31] LABS: Albumin 4.8 g/dL (3.2-5.2); Albumin/Globulin Ratio 1.8 (1-3); Calcium 10.3 mg/dL (8.6-10.3); Creatinine, Serum 0.68 mg/dL (0.67-1.17); Globulin 2.7 g/dL (2-4); Potassium 4.1 mmol/L (3.5-5.0); Total Bilirubin 1.4 mg/dL (0.2-1.0); Total Protein 7.5 g/dL (6.4-8.9); eGFR CKD-EPI 96.9 (>60)
[2024-04-06] MEDS: Iohexol 350 (CONTRAST) 500 ML MDV IV ONE (11:24)
[2024-04-06 11:33] LABS: High Sensitivity Troponin 1 Hr 208 pg/mL (<20)
[2024-04-06] MEDS: cefTRIAXone 2 gm/50 mL D5W 2 GM/50 ML BAG IV ONE (13:00)
[2024-04-06] MEDS ORDERED: Ondansetron 4 mg VIAL 2 MG/ML 2 ml VIAL IV PRN (13:20)
[2024-04-06] MEDS: metroNIDAZOLE IV 500 MG/100ML 500 MG/100 ML BAG IVPB SCH ×2 (13:54→22:32)
[2024-04-06] MEDS ORDERED: Sulfur Hexaflouride MICROSPHR 25 MG VIAL IV PRN (14:02)
[2024-04-06 14:06] LABS: C Reactive Protein 22.4 mg/L (<8.01)
[2024-04-06] MEDS: Lactated Ringers 1000 ml BAG 1,000 ML IV SCH (17:19)
[2024-04-06] MEDS: Benzocaine/Menthol LOZ PO PRN (23:19)
[2024-04-07 05:41] LABS: INR 4.35 (0.85-1.14)
[2024-04-07 05:55] LABS: Albumin 3.6 g/dL (3.2-5.2); Albumin/Globulin Ratio 1.7 (1-3); Calcium 9.2 mg/dL (8.6-10.3); Creatinine, Serum 0.55 mg/dL (0.67-1.17); Globulin 2.1 g/dL (2-4); Magnesium 1.7 mg/dL (1.9-2.7); Total Bilirubin 1.5 mg/dL (0.2-1.0); Total Protein 5.7 g/dL (6.4-8.9); eGFR CKD-EPI 103.3 (>60)
[2024-04-07 06:00] LABS: Hematocrit 41.4 % (38-53); Hemoglobin 13.8 g/dL (13.2-16.3); Mean Corpuscular Hemoglobin 31.1 pg (27-33); Mean Corpuscular Hgb Conc 33.4 g/dL (31-36); Red Blood Count 4.46 10^6/uL (4.06-5.63); White Blood Count 23.3 10^3/uL (3.6-10.2)
[2024-04-07 08:13] LABS: ABS Basophils 0.1 10^3/uL (0.0-0.1); ABS Monocytes 2.7 10^3/uL (0.0-1.1); ABS Neutrophils 19.6 10^3/uL (1.5-7.6); Giant Platelets Present; Large Platelets Present; Lymphocyte % 4.1 %; Mean Platelet Volume 11.6 fL (7.5-11.2); Platelet Count 72 10^3/uL (150-450)
[2024-04-07] MEDS ORDERED: Aspirin EC 81 mg TAB.EC (enteric coated) PO SCH (09:00)
[2024-04-07] MEDS: Phytonadione Oral Solution 5 MG/25 ML UDC PO ONE (10:41)
[2024-04-07] MEDS: Aspirin EC 81 mg TAB.EC (enteric coated) PO SCH (11:50)
[2024-04-07] MEDS ORDERED: cefTRIAXone 1 gm/50 mL D5W 1 GM/50 ML BAG IV SCH (13:00)
[2024-04-07] MEDS: cefTRIAXone 1 gm/50 mL D5W 1 GM/50 ML BAG IV SCH (13:16)
[2024-04-07] MEDS: Magnesium Sulfate 2 gm BAG 2 GM/50 ML BAG IVPB ONE (22:12)
[2024-04-07] MEDS: Senna TAB 8.6 mg TAB PO PRN (22:14)
[2024-04-07 22:38] LABS: INR 3.66 (0.85-1.14)
[2024-04-07 23:01] LABS: Albumin 3.4 g/dL (3.2-5.2); Albumin/Globulin Ratio 1.6 (1-3); Calcium 9.1 mg/dL (8.6-10.3); Creatinine, Serum 0.67 mg/dL (0.67-1.17); Globulin 2.1 g/dL (2-4); Total Bilirubin 1.2 mg/dL (0.2-1.0); Total Protein 5.5 g/dL (6.4-8.9); eGFR CKD-EPI 97.4 (>60)
[2024-04-08 00:17] LABS: ABS Basophils 0.2 10^3/uL (0.0-0.1); ABS Lymphocytes 1.1 10^3/uL (1.0-4.8); ABS Monocytes 2.4 10^3/uL (0.0-1.1); ABS Neutrophils 19.9 10^3/uL (1.5-7.6); Hematocrit 41.8 % (38-53); Hemoglobin 13.7 g/dL (13.2-16.3); Lymphocyte % 4.5 %; Mean Corpuscular Hemoglobin 30.8 pg (27-33); Mean Corpuscular Hgb Conc 32.9 g/dL (31-36); Mean Corpuscular Volume 93.6 fL (80-97); Mean Platelet Volume 11.2 fL (7.5-11.2); Platelet Count 65 10^3/uL (150-450); Red Blood Count 4.47 10^6/uL (4.06-5.63); Red Cell Distribution Width 12.8 % (12-17); White Blood Count 23.6 10^3/uL (3.6-10.2)
[2024-04-08 07:59] LABS: INR 2.65 (0.85-1.14)
[2024-04-08 08:09] LABS: Hematocrit 40.2 % (38-53); Hemoglobin 13.4 g/dL (13.2-16.3); Mean Corpuscular Hemoglobin 31.2 pg (27-33); Mean Corpuscular Hgb Conc 33.4 g/dL (31-36); Mean Corpuscular Volume 93.4 fL (80-97); Red Cell Distribution Width 13.1 % (12-17); White Blood Count 22.3 10^3/uL (3.6-10.2)
[2024-04-08 08:15] LABS: Creatinine, Serum 0.65 mg/dL (0.67-1.17); Potassium 3.8 mmol/L (3.5-5.0); eGFR CKD-EPI 98.3 (>60)
[2024-04-08] MEDS: Acetaminophen IV 1 GM/100ML 1,000 MG/100 ML BAG IV SCH (09:15)
[2024-04-08] MEDS: Cholecalciferol (VIT D3) 1,000 unit TAB PO SCH (09:16)
[2024-04-08 09:40] LABS: ABS Lymphocytes 1.6 10^3/uL (1.0-4.8); ABS Monocytes 2.2 10^3/uL (0.0-1.1); ABS Neutrophils 18.5 10^3/uL (1.5-7.6); Eosinophil % 0.1 %; Mean Platelet Volume 12.9 fL (7.5-11.2); Platelet Count 66 10^3/uL (150-450)
[2024-04-08 13:58] LABS: INR 1.76 (0.85-1.14)
[2024-04-08] MEDS ORDERED: Bupivacaine 0.25% EPI 200,000 30 ML SDV ONE (15:11)
[2024-04-08] MEDS ORDERED: Dexamethasone IV 4 MG/ML VIAL 1 ml VIAL ONE (17:32)
[2024-04-08] MEDS ORDERED: Lidocaine 2% PF 5 ML VIAL ONE (17:32)
[2024-04-08] MEDS ORDERED: Propofol 10 MG/ML 20 ML BTL ONE (17:32)
[2024-04-08] MEDS ORDERED: Ondansetron 4 mg VIAL 2 MG/ML 2 ml VIAL ONE (17:32)
[2024-04-08] MEDS ORDERED: Midazolam 2 mg/2 ml VIAL 1 mg/ml 2 ml VIAL (2 mg) ONE (17:33)
[2024-04-08] MEDS ORDERED: fentaNYL 100 mcg/2 ml 50 MCG/ML VIAL ONE ×2 (17:33→19:21)
[2024-04-08] MEDS ORDERED: Rocuronium 50 mg VIAL 10 mg/ml 5 ml VIAL (50 mg) ONE (17:37)
[2024-04-08] MEDS ORDERED: fentaNYL 100 mcg/2 ml 50 MCG/ML VIAL IV PRN (19:29)
[2024-04-08] MEDS ORDERED: Ondansetron 4 mg VIAL 2 MG/ML 2 ml VIAL IV PRN ×2 (19:29→19:35)
[2024-04-08] MEDS ORDERED: Metoclopramide 5 MG/ML VIAL (10 mg) IV PRN (19:29)
[2024-04-08] MEDS ORDERED: Naloxone 0.4 mg VIAL 0.4 mg/ml 1 ml VIAL IV PRN (19:29)
[2024-04-08] MEDS ORDERED: NS 0.45% 1000 ml BAG 1,000 ML IV SCH (20:00)
[2024-04-08] MEDS: NS 0.9% 1000 ml BAG 1,000 ML IV SCH (21:19)
[2024-04-09] MEDS: Scopolamine 1 mg/72hr PATCH TRANSDERM ONE (06:17)
[2024-04-09] MEDS: Furosemide 40 mg/4 ml IV VIAL IV ONE (06:17)
[2024-04-09] MEDS: Acetaminophen IV 1 GM/100ML 1,000 MG/100 ML BAG IV ONE (06:18)
[2024-04-09] MEDS: Buffered Lidocaine 1% SYRIN 1 ml INTRADERM ONE (06:18)
[2024-04-09] MEDS: Lactated Ringers 1000 ml BAG 1,000 ML IV SCH (06:19)
[2024-04-09 07:04] LABS: INR 1.69 (0.85-1.14)
[2024-04-09 07:16] LABS: Calcium 8.5 mg/dL (8.6-10.3); Creatinine, Serum 0.56 mg/dL (0.67-1.17); Potassium 3.8 mmol/L (3.5-5.0); eGFR CKD-EPI 102.8 (>60)
[2024-04-09 08:22] LABS: ABS Lymphocytes 0.4 10^3/uL (1.0-4.8); ABS Monocytes 0.5 10^3/uL (0.0-1.1); ABS Neutrophils 9.1 10^3/uL (1.5-7.6); Hematocrit 35.3 % (38-53); Hemoglobin 11.9 g/dL (13.2-16.3); Large Platelets Present; Lymphocyte % 4.2 %; Mean Corpuscular Hemoglobin 31.6 pg (27-33); Mean Corpuscular Hgb Conc 33.8 g/dL (31-36); Mean Corpuscular Volume 93.4 fL (80-97); Mean Platelet Volume 12.9 fL (7.5-11.2); Platelet Count 68 10^3/uL (150-450); Red Blood Count 3.78 10^6/uL (4.06-5.63); Red Cell Distribution Width 12.8 % (12-17); White Blood Count 10.1 10^3/uL (3.6-10.2)
[2024-04-10 02:18] LABS: Hematocrit 33.2 % (38-53); Hemoglobin 11.3 g/dL (13.2-16.3); Mean Corpuscular Hemoglobin 31.7 pg (27-33); Mean Corpuscular Hgb Conc 34.1 g/dL (31-36); Mean Corpuscular Volume 92.7 fL (80-97); Mean Platelet Volume 12.2 fL (7.5-11.2); Platelet Count 83 10^3/uL (150-450); Red Blood Count 3.58 10^6/uL (4.06-5.63); Red Cell Distribution Width 13.1 % (12-17); White Blood Count 13.4 10^3/uL (3.6-10.2)
[2024-04-10 02:19] LABS: ABS Monocytes 0.9 10^3/uL (0.0-1.1); ABS Neutrophils 11.5 10^3/uL (1.5-7.6); Lymphocyte % 7.1 %
[2024-04-10 06:44] LABS: INR 1.61 (0.85-1.14)
[2024-04-10] MEDS ORDERED: Heparin 5000 UNITS/ML 1 mL VIAL IV SCH ×2 (09:00→12:00)
[2024-04-10 09:34] LABS: Hematocrit 34.9 % (38-53); Hemoglobin 11.8 g/dL (13.2-16.3); Mean Corpuscular Hemoglobin 31.3 pg (27-33); Mean Corpuscular Hgb Conc 33.7 g/dL (31-36); Mean Corpuscular Volume 92.9 fL (80-97); Mean Platelet Volume 12.1 fL (7.5-11.2); Platelet Count 87 10^3/uL (150-450); Red Blood Count 3.76 10^6/uL (4.06-5.63); White Blood Count 12.2 10^3/uL (3.6-10.2)
[2024-04-10 09:54] LABS: ABS Lymphocytes 1.2 10^3/uL (1.0-4.8); ABS Monocytes 0.7 10^3/uL (0.0-1.1); ABS Neutrophils 10.3 10^3/uL (1.5-7.6); ABS Nucleated RBC 0.01 10^3/ul; Eosinophil % 0.1 %; Large Platelets Present; Lymphocyte % 9.8 %; Nucleated Red Blood Cells % 0.1 %/100WBC (0.0-0.8)
[2024-04-10 09:58] LABS: Creatinine, Serum 0.55 mg/dL (0.67-1.17); eGFR CKD-EPI 103.3 (>60)
[2024-04-10] MEDS: Heparin DRIP 25,000 UNITS BAG 25,000 UNITS/250 ML BAG IV SCH ×2 (11:11→11:23)
[2024-04-10 18:09] LABS: Creatinine, Serum 0.62 mg/dL (0.67-1.17); eGFR CKD-EPI 99.7 (>60)
[2024-04-10 18:16] LABS: ABS Basophils 0.1 10^3/uL (0.0-0.1); ABS Eosinophils 0.1 10^3/uL (0.0-0.5); ABS Lymphocytes 1.7 10^3/uL (1.0-4.8); ABS Neutrophils 8.1 10^3/uL (1.5-7.6); Eosinophil % 0.7 %; Hematocrit 35.1 % (38-53); Hemoglobin 11.8 g/dL (13.2-16.3); Lymphocyte % 15.5 %; Mean Corpuscular Hemoglobin 31.1 pg (27-33); Mean Corpuscular Hgb Conc 33.7 g/dL (31-36); Mean Corpuscular Volume 92.5 fL (80-97); Mean Platelet Volume 11.7 fL (7.5-11.2); Platelet Count 86 10^3/uL (150-450); Red Blood Count 3.79 10^6/uL (4.06-5.63); Red Cell Distribution Width 13.3 % (12-17)
[2024-04-11 06:07] LABS: INR 1.51 (0.85-1.14)
[2024-04-11 06:41] LABS: Hematocrit 36.3 % (38-53); Hemoglobin 12.1 g/dL (13.2-16.3); Mean Corpuscular Hemoglobin 31.1 pg (27-33); Mean Corpuscular Hgb Conc 33.3 g/dL (31-36); Mean Corpuscular Volume 93.4 fL (80-97); Red Blood Count 3.89 10^6/uL (4.06-5.63); Red Cell Distribution Width 13.2 % (12-17); White Blood Count 8.3 10^3/uL (3.6-10.2)
[2024-04-11 07:20] LABS: ABS Eosinophils 0.3 10^3/uL (0.0-0.5); ABS Lymphocytes 2.4 10^3/uL (1.0-4.8); ABS Neutrophils 4.6 10^3/uL (1.5-7.6); Eosinophil % 3.9 %; Large Platelets Present; Lymphocyte % 28.6 %; Mean Platelet Volume 11.6 fL (7.5-11.2); Platelet Count 98 10^3/uL (150-450)
[2024-04-11] MEDS: Warfarin DAILY REMINDER **NOTE FOLLOW UP SCH (17:52)
[2024-04-12 06:34] LABS: Activated Partial Thrombo Time 79.8 seconds (26.0-38.0)
[2024-04-12 06:45] LABS: ABS Basophils 0.1 10^3/uL (0.0-0.1); ABS Eosinophils 0.6 10^3/uL (0.0-0.5); ABS Lymphocytes 2.5 10^3/uL (1.0-4.8); ABS Monocytes 0.9 10^3/uL (0.0-1.1); ABS Neutrophils 4.3 10^3/uL (1.5-7.6); Hematocrit 39.1 % (38-53); Hemoglobin 13.1 g/dL (13.2-16.3); Lymphocyte % 29.9 %; Mean Corpuscular Hgb Conc 33.4 g/dL (31-36); Mean Corpuscular Volume 92.7 fL (80-97); Mean Platelet Volume 12.2 fL (7.5-11.2); Platelet Count 122 10^3/uL (150-450); Red Blood Count 4.21 10^6/uL (4.06-5.63); Red Cell Distribution Width 13.3 % (12-17); White Blood Count 8.3 10^3/uL (3.6-10.2)
[2024-04-12 06:47] LABS: Albumin 3.4 g/dL (3.2-5.2); Albumin/Globulin Ratio 1.5 (1-3); Calcium 9.3 mg/dL (8.6-10.3); Creatinine, Serum 0.6 mg/dL (0.67-1.17); Globulin 2.3 g/dL (2-4); Potassium 3.9 mmol/L (3.5-5.0); Total Bilirubin 0.7 mg/dL (0.2-1.0); Total Protein 5.7 g/dL (6.4-8.9); eGFR CKD-EPI 100.7 (>60)
[2024-04-12 08:28] LABS: INR 1.39 (0.85-1.14)
[2024-04-12 10:10] VITALS: BP 124/78
[2024-04-12] MEDS: Enoxaparin 80 MG/0.8 ML SYR SUBCUT SCH (12:11)
== END 2024-04-12 14:30 | disposition home or self-care (01) | DRG 853 ==
LOC: ED 09:30 → EDHOLD 13:20 → SUATTDRO 13:20 → MEDTELE 17:57
PROVIDERS: ADMIT Student in an Organized Health Care Education/Training Program; ATTEND Student in an Organized Health Care Education/Training Program